=== PATIENT | female | born 1975 | race Caucasian/White ===

== ENCOUNTER 2017-12-18 12:05 | Emergency (ER) | payer SELFPAY ==
[2017-12-18] MEDS ORDERED: SMZ./TMP. 800/160 MG TABLET ONE (12:27)
[2017-12-18] MEDS ORDERED: LIDOCAINE 1% 20 ML MDV ONE (12:27)
[2017-12-18] MEDS ORDERED: HYDROCODONE/APAP 7.5/325 MG TAB ONE (12:27)
--- NOTE | 2017-12-18 13:31 | ER ---
Nurse's Notes [facility] Name: Mara Albarran Age: 42 yrs Sex: Female : 1975 Arrival Date: 12/18/2017 Time: 12:09 Bed 16 Private MD: None, None Diagnosis: Cutaneous abscess of groin-multiple Presentation: 12/18 12:17 Presenting complaint: Patient states: " I recently started walking daily and I shaved ph down there and now I have about 4 boils in my bikini area." Pt reports multiple red raised areas in groin, some w/ purulent drainage, denies N/V/D or fever. Transition of care: patient was not received from another setting of care. Onset of symptoms was December 18, 2017. Risk Assessment: Do you want to hurt yourself or someone else? Patient reports no desire to harm self or others. Initial Sepsis Screen: Does the patient meet any 2 criteria? No. Patient's initial sepsis screen is negative. Does the patient have a suspected source of infection? Yes: Skin breakdown/wound. Care prior to arrival: None. 12:17 Method Of Arrival: Ambulatory ph 12:17 Acuity: KB 4 ph PIECER UP: 12:19 LMP N/A - Irregular menses ph Historical: - Allergies: 12:19 No Known Allergies; ph - Home Meds: 12:19 None [Active]; ph - PSHx: 12:19 Cholecystectomy; ph - Immunization history:: Adult Immunizations unknown. - Social history:: Smoking status: Patient/guardian denies using tobacco. - Ebola Screening: : No symptoms or risks identified at this time. Screenin:48 Abuse screen: Denies threats or abuse. Denies injuries from another. Nutritional aj screening: No deficits noted. Tuberculosis screening: No symptoms or risk factors identified. Fall Risk None identified. Assessment: 13:48 General: Appears in no apparent distress. comfortable, Behavior is calm, cooperative, aj appropriate for age. Pain: Complains of pain in pelvis. Neuro: Level of Consciousness is awake, alert, obeys commands, Oriented to person, place, time, situation, Appropriate for age. Respiratory: Airway is patent Respiratory effort is even, unlabored, Respiratory pattern is regular, symmetrical. Derm: Skin is intact, is healthy with good turgor, Skin is pink, warm \\T\\ dry. normal, Abscess located on pelvis. Vital Signs: 12:19 BP 164 / 115; Pulse 112; Resp 18; Temp 99.3(O); Pulse Ox 100% on R/A; Weight 70.31 kg; ph Height 5 ft. 2 in. (157.48 cm); Pain 6/10; 13:16 BP 113 / 75; Pulse 92; Resp 17; Pulse Ox 100% ; mh5 12:19 Body Mass Index 28.35 (70.31 kg, 157.48 cm) ph ED Course: 12:09 Patient arrived in ED. mr 12:09 None, None is Private Physician. mr 12:10 Zuleyka Main, [facility] kb 12:10 Akshat Paige MD is Attending Physician. kb 12:[address], GOMEZ is Primary Nurse. aj 12:19 Triage completed. ph 12:20 Arm band placed on Patient placed in an exam room. ph 13:48 Patient has correct armband on for positive identification. aj 13:48 Assist provider with I \\T\\ D: of an abscess on right of an abscess on right Set up I\\T\\D aj tray. Performed by Zuleyka TORIBIO Culture sent to lab. Dressing with 4X4s, Patient tolerated well. Patient did not have IV access during this emergency room visit. Administered Medications: 12:51 Drug: Bactrim (160 mg-800 mg (DS) 1 tablet Route: PO; aj 13:47 Follow up: Response: No adverse reaction aj 12:52 Drug: [place] (7.5 mg-325 mg) 1 tabs Route: PO; aj 13:47 Follow up: Response: No adverse reaction; Pain is decreased aj 13:13 Drug: Lidocaine (1 %) 5 mg Route: Infiltration; aj 13:47 Drug: KeFLEX 500 mg Route: PO; aj 13:47 Follow up: Response: No adverse reaction aj Outcome: 13:30 Discharge ordered by . kb 13:48 Discharged to home ambulatory. aj 13:48 Condition: good 13:48 Discharge instructions given to patient, Instructed on discharge instructions, follow up and referral plans. medication usage, Demonstrated understanding of instructions, follow-up care, medications, Prescriptions given X 2. 13:50 Patient left the ED. aj Addendum: 12/22/2017 08:13 Addendum: Culture Results: Positive urine culture. No further action required. Bacteria s s sensitive to prescribed antibiotic. Signatures: Zuleyka Main, CATARINO ANDERSON-Alexandra Stout RN RN aj Rivera, Maria mr Smirch, Shelby, RN GOMEZ Cassie Bullard RN RN Yoon Hurd [facility]
--- NOTE | 2017-12-18 13:31 | EDPHYS ---
Physician Documentation [facility] Name: Mara Albarran Age: 42 yrs Sex: Female : 1975 Arrival Date: 12/18/2017 Time: 12:09 Bed 16 Private MD: None, None ED Physician Akshat Paige HPI: 12/18 12:20 This 42 yrs old Female presents to ER via Ambulatory with complaints of kb Abscess. 12:20 The patient presents with an abscess of the groin. Description: draining, erythematous, kb fluctuant, swollen, warm. Onset: The symptoms/episode began/occurred 1.5 week(s) ago, and became worse 5 day(s) ago. Possible cause(s): shaving. Associated signs and symptoms: Pertinent positives: drainage, erythema, swelling, Pertinent negatives: foreign body sensation, fever, headache, nausea, shortness of breath, vomiting. Modifying factors: the symptoms are alleviated by nothing, the symptoms are aggravated by walking, pressure, squeezing the lesion and expressing the contents, touching. Severity of symptoms: At their worst the symptoms were moderate, in the emergency department the symptoms are unchanged. The patient has not experienced similar symptoms in the past. The patient has not recently seen a physician. 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 - Social history:: Smoking status: Patient/guardian denies using tobacco. - Ebola Screening: : No symptoms or risks identified at this time. ROS: 12:20 Constitutional: Negative for fever, chills, and weight loss, Cardiovascular: Negative kb for chest pain, palpitations, and edema, Respiratory: Negative for shortness of breath, cough, wheezing, and pleuritic chest pain, Abdomen/GI: Negative for abdominal pain, nausea, vomiting, diarrhea, and constipation, Back: Negative for injury and pain, MS/Extremity: Negative for injury and deformity, Neuro: Negative for headache, weakness, numbness, tingling, and seizure. 12:20 Skin: Positive for abscess, of the groin. Exam: 12:20 Constitutional: This is a well developed, well nourished patient who is awake, alert, kb and in no acute distress. Head/Face: Normocephalic, atraumatic. Chest/axilla: Normal chest wall appearance and motion. Nontender with no deformity. No lesions are appreciated. Cardiovascular: Regular rate and rhythm with a normal S1 and S2. No gallops, murmurs, or rubs. Normal PMI, no JVD. No pulse deficits. Respiratory: Lungs have equal breath sounds bilaterally, clear to auscultation and percussion. No rales, rhonchi or wheezes noted. No increased work of breathing, no retractions or nasal flaring. Abdomen/GI: Soft, non-tender, with normal bowel sounds. No distension or tympany. No guarding or rebound. No evidence of tenderness throughout. MS/ Extremity: Pulses equal, no cyanosis. Neurovascular intact. Full, normal range of motion. Neuro: Awake and alert, GCS 15, oriented to person, place, time, and situation. Cranial nerves II-XII grossly intact. Motor strength 5/5 in all extremities. Sensory grossly intact. Cerebellar exam normal. Normal gait. 12:20 Skin: abscess, that is small, that is moderate sized, of the groin, with drainage, with fluctuance, with induration, with surrounding cellulitis, multiple abscesses to inner thighs/groin area. Vital Signs: 12:19 BP 164 / 115; Pulse 112; Resp 18; Temp 99.3(O); Pulse Ox 100% on R/A; Weight 70.31 kg; ph Height 5 ft. 2 in. (157.48 cm); Pain 6/10; 13:16 BP 113 / 75; Pulse 92; Resp 17; Pulse Ox 100% ; mh5 12:19 Body Mass Index 28.35 (70.31 kg, 157.48 cm) ph Procedures: 13:28 I \T\ D: Incision and drainage was performed for an abscess of the groin Prepped with Betadine, Anesthetized with 8 ml's 1% Lidocaine. Incised with #11 blade. Drained moderate amount purulent fluid. Loculations removed. Cultures obtained. Packed with sterile gauze, Dressing: sterile 4x4 gauze, the patient tolerated the procedure well, three abscesses . MDM: 12:13 Patient medically screened. [facility] 12:22 Data reviewed: vital signs, nurses notes. Data interpreted: Pulse oximetry: on room air kb is 100 %. Interpretation: normal. 13:28 Counseling: I had a detailed discussion with the patient and/or guardian regarding: the kb historical points, exam findings, and any diagnostic results supporting the discharge/admit diagnosis, the need for outpatient follow up, a general surgeon, to return to the emergency department if symptoms worsen or persist or if there are any questions or concerns that arise at home. 12/18 12:20 Order name: Wound Culture kb 12/18 12:20 Order name: I\T\D Setup; Complete Time: 13:47 kb Administered Medications: 12:51 Drug: Bactrim (160 mg-800 mg (DS) 1 tablet Route: PO; aj 13:47 Follow up: Response: No adverse reaction aj 12:52 Drug: [place] (7.5 mg-325 mg) 1 tabs Route: PO; aj 13:47 Follow up: Response: No adverse reaction; Pain is decreased aj 13:13 Drug: Lidocaine (1 %) 5 mg Route: Infiltration; aj 13:47 Drug: KeFLEX 500 mg Route: PO; aj 13:47 Follow up: Response: No adverse reaction aj Disposition: 12/18/17 13:30 Discharged to Home. Impression: Cutaneous abscess of groin - multiple. - Condition is Stable. - Discharge Instructions: Abscess, [id number]. - Prescriptions for Keflex 500 mg Oral Capsule - take 1 capsule by ORAL route every 8 hours for 10 days; 30 capsule. Bactrim DS 800- 160 mg Oral Tablet - take 1 tablet by ORAL route every 12 hours for 10 days; 20 tablet. - Medication Reconciliation Form, Thank You Letter, Antibiotic Education, Prescription Opioid Use form. - Follow up: Emergency Department; When: As needed; Reason: Worsening of condition. Follow up: Private Physician; When: 2 - 3 days; Reason: Recheck today's complaints, Continuance of care, Re-evaluation by your physician. Addendum: 12/22/2017 08:47 Co-signature as Attending Physician, Akshat Paige MD I agree with the assessment and c bui plan of care. Signatures: Dispatcher [employer] Zuleyka Dey, MONICA-C MONICA-Alexandra Stout RN Akshat Soliz MD MD cha Hall, Patricia RN RN ph Corrections: (The following items were deleted from the chart) 12/18 13:50 13:30 12/18/2017 13:30 Discharged to Home. Impression: Cutaneous abscess of groin - aj multiple. Condition is Stable. Forms are Medication Reconciliation Form, Thank You Letter, Antibiotic Education, Prescription Opioid Use. Follow up: Emergency Department; When: As needed; Reason: Worsening of condition. Follow up: Private Physician; When: 2 - 3 days; Reason: Recheck today's complaints, Continuance of care, Re-evaluation by your physician. kb
[2017-12-18] MEDS ORDERED: CEPHALEXIN 250 MG CAP ONE (13:37)
[2017-12-18 14:21] VITALS: TEMP 99.3; O2SAT 100
[2017-12-18 14:22] VITALS: BP 113/75
== END 2017-12-18 13:50 | disposition home or self-care (01) ==
LOC: ER 12:05
PROC: 0J9C0ZZ Drainage of Pelvic Region Subcutaneous Tissue and Fascia, Open Approach (ICD-10-PCS; principal; 2017-12-18)
DX: L02.214 Cutaneous abscess of groin (principal)
CPT/HCPCS: 87070; 87077; 87186; 87205; 99284